=== PATIENT | female | born 1945 | race Caucasian/White ===

== ENCOUNTER 2022-07-22 10:16 | Emergency (ER) | payer BC, MEDICAID ==
[~2022-07-22] VITALS: Ht 157.5 cm; Wt 85.0 kg
[2022-07-22] MEDS ORDERED: oxyCODONE/APAP 5-325mg tablet PO ONE (14:45)
[2022-07-22] MEDS ORDERED: benzonatate 100mg capsule PO ONE (14:45)
[2022-07-22 15:38] VITALS: BP 125/67
== END 2022-07-22 15:40 | disposition home or self-care (01) ==
LOC: ER 10:17
DX: R07.81 Pleurodynia (principal); R05.3 Chronic cough; J44.9 Chronic obstructive pulmonary disease, unspecified; G89.29 Other chronic pain; Z85.118 Personal history of other malignant neoplasm of bronchus and lung; Z88.8 Allergy status to other drugs, medicaments and biological substances
CPT/HCPCS: 71045; 99283